=== PATIENT | female | born 1970 | race Caucasian/White ===

== ENCOUNTER 2017-08-29 05:45 | Day surgery (SDC) | payer MEDICAID ==
[~2017-08-29] VITALS: Ht 152.4 cm; Wt 128.1 kg
[~2017-08-29 05:45] MED LIST: None at this time
[2017-08-29] MEDS ORDERED: LACTATED RINGERS 1,000 ML IV SCH (06:19)
[2017-08-29 06:23] LABS: HCG UR LOT HCG7030192
[2017-08-29 06:25] LABS: HCG UR OBC PASS
[2017-08-29 06:46] VITALS: BP 127/84
[2017-08-29] MEDS ORDERED: PRAV10TA2 PO (06:53)
[2017-08-29] MEDS ORDERED: FURO20TA3 PO (06:53)
[2017-08-29] MEDS ORDERED: METF500T4 PO (06:53)
[2017-08-29] MEDS ORDERED: OXYC1TAB9 PO (06:53)
[2017-08-29] MEDS ORDERED: HYDR25TA11 PO (06:53)
[2017-08-29] MEDS ORDERED: MEDR10TA3 PO (06:53)
[2017-08-29] MEDS ORDERED: METO25TA35 PO (06:53)
[2017-08-29] MEDS ORDERED: LISI-167 PO (06:53)
[2017-08-29] MEDS ORDERED: BUPIVACAINE/PF 0.25% ONE (06:57)
[2017-08-29] MEDS ORDERED: EPINEPHRINE 1 MG/ML, 1ML ONE (06:57)
[2017-08-29] MEDS ORDERED: hydrALAzine 20 MG/ML, 1ML IV PRN (07:30)
[2017-08-29] MEDS ORDERED: ACETAMINOPHEN 325 MG TABLET PO PRN (07:30)
[2017-08-29] MEDS ORDERED: OXYcodone 5 MG/5 ML ORAL.SOL UDC PO PRN (07:30)
[2017-08-29] MEDS ORDERED: HYDROmorphone 1 MG/ML, 1ML IV PRN (07:30)
[2017-08-29] MEDS ORDERED: PROMETHAZINE 25 MG/ML, 1ML IV PRN (07:30)
[2017-08-29] MEDS ORDERED: ONDANSETRON 2MG/ML, 2ML IVPush PRN (07:30)
[2017-08-29] MEDS ORDERED: MEPERIDINE/PF 25MG/0.5ML IVPush PRN (07:30)
[2017-08-29] MEDS ORDERED: FENTANYL PF 100 MCG/2ML IV PRN (07:30)
[2017-08-29] MEDS ORDERED: LABETALOL 5MG/ML, 20ML IV PRN (07:30)
[2017-08-29] MEDS ORDERED: ONDANSETRON 2MG/ML, 2ML ONE (07:34)
[2017-08-29] MEDS ORDERED: NEOSTIGMINE 1 MG/ML, 10ML ONE (07:34)
[2017-08-29] MEDS ORDERED: PROPOFOL 10 MG/ML, 20ML ONE (07:34)
[2017-08-29] MEDS ORDERED: KETOROLAC 30 MG/1 ML ONE (07:34)
[2017-08-29] MEDS ORDERED: GLYCOPYRROLATE 0.2MG/1ML, 5ML ONE (07:34)
[2017-08-29] MEDS ORDERED: ROCURONIUM 10MG/ML,5ML ONE (07:34)
[2017-08-29] MEDS ORDERED: FENTANYL PF 250 MCG/5ML ONE (07:34)
[2017-08-29] MEDS ORDERED: CEFAZOLIN 1,000 MG ONE (07:34)
[2017-08-29] MEDS ORDERED: MIDAZOLAM 1 MG/ML, 5ML ONE (07:34)
[2017-08-29] MEDS ORDERED: FENTANYL PF 100 MCG/2ML ONE (09:22)
[2017-08-29] MEDS ORDERED: OXYcodone 5 MG/5 ML ORAL.SOL UDC ONE (09:22)
[2017-08-29] MEDS ORDERED: ACETAMINOPHEN 650 MG/20.3 ML UDC ONE (09:22)
[2017-08-29] MEDS ORDERED: PROMETHAZINE 25 MG/ML, 1ML ONE (09:35)
[2017-08-29] MEDS ORDERED: OXYcodone/APAP 10/325MG TABLET ONE (15:46)
[2017-08-29] MEDS ORDERED: OXYcodone/APAP 10/325MG TABLET PO ONE (16:30)
== END 2017-08-29 16:00 ==
LOC: OUT 05:45
PROVIDERS: ATTEND Obstetrics & Gynecology Gynecologic Oncology
DX: N83.202 Unspecified ovarian cyst, left side (principal); I10 Essential (primary) hypertension
CPT/HCPCS: 36415; 58661; 81025; 82962; 86850; 86900; 86923; 88305; J0171; J1885; J2250; J2550; J3010; J3490; J7120; J0690; J1100; J2405; J2704; J2710

== ENCOUNTER 2017-09-05 10:11 | Emergency (ER) | payer MEDICAID ==
[~2017-09-05] VITALS: Ht 152.4 cm; Wt 125.7 kg
[~2017-09-05 10:11] MED LIST changes: +FURO20TA3 PO; +HYDR25TA11 PO; +LISI-167 PO; +MEDR10TA3 PO; +METF500T4 PO; +METO25TA35 PO; +OXYC1TAB9 PO; +PRAV10TA2 PO
== END 2017-09-05 12:17 | disposition home or self-care (01) ==
LOC: ED 10:40
DX: T81.31XA Disruption of external operation (surgical) wound, not elsewhere classified, initial encounter (principal); J20.8 Acute bronchitis due to other specified organisms; B96.89 Other specified bacterial agents as the cause of diseases classified elsewhere; E11.9 Type 2 diabetes mellitus without complications; I10 Essential (primary) hypertension; E78.00 Pure hypercholesterolemia, unspecified
CPT/HCPCS: 71020; 99284

== ENCOUNTER 2017-11-19 09:54 | Emergency (ER) | payer MEDICAID ==
[~2017-11-19] VITALS: Ht 149.9 cm; Wt 119.1 kg
[2017-11-19 10:37] LABS: BASOPHILS # (AUTO) 0.04 x10^3/uL (0-0.1); BASOPHILS % (AUTO) 0 % (0-1); EOSINOPHILS # (AUTO) 0.46 x10^3/uL (0-0.4); EOSINOPHILS % (AUTO) 5 % (1-7); LYMPHOCYTES # (AUTO) 3.76 x10^3/uL (1-3.4); LYMPHOCYTES % (AUTO) 38 % (22-44); MD NO; MEAN CORPUSCULAR HGB CONC 33.8 g/dL (32.4-35.8); MEAN CORPUSCULAR VOLUME 88.7 fL (80-100); MEAN PLATELET VOLUME 9.5 fL (7.4-10.4); MONOCYTES # (AUTO) 0.31 x10^3/uL (0.2-0.8); MONOCYTES % (AUTO) 3 % (2-9); NEUTROPHILS # (AUTO) 5.32 x10^3/uL (1.8-6.8); NEUTROPHILS % (AUTO) 54 % (42-75); PLATELET COUNT 287 x10^3/uL (130-400); RED BLOOD COUNT 4.56 x10^6/uL (3.82-5.3); RED CELL DISTRIBUTION WIDTH 13.3 % (9.6-15.2)
[2017-11-19 10:48] LABS: ALBUMIN 3.1 g/dL (3.4-5.0); ANION GAP 9 mmol/L (5-15); CALCIUM 8.6 mg/dL (8.5-10.1); CHLORIDE 109 mmol/L (98-107); CREATININE 0.81 mg/dL (0.55-1.02)
[2017-11-19 10:57] LABS: FREE T4 (FREE THYROXINE) 0.82 ng/dL (0.76-1.46)
[2017-11-19 12:16] VITALS: BP 124/72
== END 2017-11-19 12:19 | disposition home or self-care (01) ==
LOC: ED 10:12
DX: B96.89 Other specified bacterial agents as the cause of diseases classified elsewhere (principal); J20.8 Acute bronchitis due to other specified organisms; J44.9 Chronic obstructive pulmonary disease, unspecified; E11.9 Type 2 diabetes mellitus without complications; E66.9 Obesity, unspecified; E78.00 Pure hypercholesterolemia, unspecified; I10 Essential (primary) hypertension; Z87.891 Personal history of nicotine dependence
CPT/HCPCS: 36415; 71046; 80048; 82040; 84439; 84443; 85025; 99285

== ENCOUNTER 2017-11-22 09:26 | Emergency (ER) | payer MEDICAID ==
[~2017-11-22] VITALS: Ht 152.4 cm; Wt 119.1 kg
[2017-11-22 10:55] LABS: BASOPHILS # (AUTO) 0.03 x10^3/uL (0-0.1); BASOPHILS % (AUTO) 0 % (0-1); EOSINOPHILS # (AUTO) 0.42 x10^3/uL (0-0.4); EOSINOPHILS % (AUTO) 5 % (1-7); LYMPHOCYTES % (AUTO) 37 % (22-44); MD NO; MEAN CORPUSCULAR HGB CONC 34.1 g/dL (32.4-35.8); MEAN CORPUSCULAR VOLUME 87.8 fL (80-100); MEAN PLATELET VOLUME 9.6 fL (7.4-10.4); MONOCYTES # (AUTO) 0.31 x10^3/uL (0.2-0.8); MONOCYTES % (AUTO) 3 % (2-9); NEUTROPHILS # (AUTO) 5.09 x10^3/uL (1.8-6.8); NEUTROPHILS % (AUTO) 55 % (42-75); PLATELET COUNT 257 x10^3/uL (130-400); RED CELL DISTRIBUTION WIDTH 13.3 % (9.6-15.2)
[2017-11-22 11:09] LABS: ALANINE AMINOTRANSFERASE 19 U/L (12-78); ANION GAP 9 mmol/L (5-15); CALCIUM 8.3 mg/dL (8.5-10.1); CHLORIDE 108 mmol/L (98-107); CREATININE 0.76 mg/dL (0.55-1.02)
[2017-11-22 11:19] LABS: ALKALINE PHOSPHATASE 73 U/L (45-117); BILIRUBIN,TOTAL 0.2 mg/dL (0.2-1.0); FREE T4 (FREE THYROXINE) 0.87 ng/dL (0.76-1.46); TOTAL PROTEIN 7.4 g/dL (6.4-8.2)
[2017-11-22 12:27] VITALS: BP 132/80
== END 2017-11-22 12:29 | disposition home or self-care (01) ==
LOC: ED 10:25
DX: L30.9 Dermatitis, unspecified (principal); I10 Essential (primary) hypertension; E11.9 Type 2 diabetes mellitus without complications; E66.9 Obesity, unspecified; Z86.73 Personal history of transient ischemic attack (TIA), and cerebral infarction without residual deficits
CPT/HCPCS: 36415; 76536; 80053; 84439; 84443; 85025; 99285

== ENCOUNTER → 2020-06-09 | Outpatient (CLI) | payer MEDICAID ==
[~2020-06-09] MED LIST changes: +ASPI81TA45 PO; +ATOR10TA9 PO; +BUPR-173 PO; +HYDR-826 PO; -HYDR25TA11 PO; +MELO7.5T31 PO; +METF500T17 PO; -METF500T4 PO; +OXYC-432 PO; -OXYC1TAB9 PO; +POTA10TA31 PO
[2020-06-09 13:54] LABS: ALANINE AMINOTRANSFERASE 33 U/L (12-78); ALBUMIN 3.4 g/dL (3.4-5.0); ANION GAP 7 mmol/L (5-15); CALCIUM 9.5 mg/dL (8.5-10.1); CHLORIDE 109 mmol/L (98-107); CREATININE 0.85 mg/dL (0.55-1.02)
[2020-06-09 13:56] LABS: ALKALINE PHOSPHATASE 86 U/L (45-117); BILIRUBIN,TOTAL 0.4 mg/dL (0.2-1.0); TOTAL PROTEIN 8.5 g/dL (6.4-8.2)
== END | disposition home or self-care (01) ==
LOC: STAR 11:08
PROVIDERS: ATTEND Internal Medicine Critical Care Medicine
DX: Z01.818 Encounter for other preprocedural examination (principal); Z20.828 Contact with and (suspected) exposure to other viral communicable diseases; R59.1 Generalized enlarged lymph nodes
CPT/HCPCS: 36415; 80053; 87635; 93005

== ENCOUNTER → 2020-06-13 | Day surgery (SDC) | payer MEDICAID ==
[~2020-06-13] VITALS: Ht 151.1 cm; Wt 130.6 kg
[~2020-06-13] MED LIST changes: +ALBUTEROL HFA 90 MCG/SPRAY ONE; +ALBUTEROL-IPRATROPIUM MDI INH INH PRN; +CHLORHEXIDINE 15 ML UDC MM ONE; +CHLORHEXIDINE 15 ML UDC ONE; +DEXAMETHASONE 4 MG/ML, 1ML ONE; +FENTANYL PF 100 MCG/2ML ONE; +LACTATED RINGERS 1,000 ML IV SCH; +LIDOCAINE-MPF 1%, 2ML ONE; +MEPERIDINE/PF 25MG/0.5ML IVPush PRN; +MIDAZOLAM 1 MG/ML, 2ML ONE; +ONDANSETRON 2MG/ML, 2ML ONE; +PHENYLEPHRINE 10 MG/ML ONE; +PROMETHAZINE 25 MG/ML, 1ML IVPush PRN; +PROMETHAZINE 25 MG/ML, 1ML ONE; +PROPOFOL 10 MG/ML, 20ML ONE; +ROCURONIUM 10MG/ML,5ML ONE; +SUGAMMADEX 200 MG/2 ML IVPush ONE; +morphine SULFATE 10 MG/ML, 1ML IVPush PRN
[2020-06-13 08:57] VITALS: BP 124/85
[2020-06-13 08:58] VITALS: BP 124/85
[2020-06-13] MEDS: FENTANYL PF 100 MCG/2ML IV PRN ×2 (13:30→13:50)
[2020-06-13 16:24] LABS: HCG UR SG 1.022 (1.003-1.030)
== END | disposition home or self-care (01) ==
LOC: OUT 08:07
PROVIDERS: ATTEND Internal Medicine Critical Care Medicine
DX: R59.0 Localized enlarged lymph nodes (principal); I10 Essential (primary) hypertension; E78.5 Hyperlipidemia, unspecified; E11.9 Type 2 diabetes mellitus without complications; F32.9 Major depressive disorder, single episode, unspecified; J44.9 Chronic obstructive pulmonary disease, unspecified; E66.01 Morbid (severe) obesity due to excess calories; Z68.43 Body mass index [BMI] 50.0-59.9, adult; Z79.899 Other long term (current) drug therapy; Z87.891 Personal history of nicotine dependence
CPT/HCPCS: 31653; 71045; 81025; 82962; 88172; 88173; 88177; 88305; J1100; J2250; J2370; J2405; J2550; J2704; J3010; J7120